=== PATIENT | male | born 1975 | race Caucasian/White ===

== ENCOUNTER → 2024-10-28 | Outpatient (CLI) | payer OTHER, BC ==
--- NOTE | 2024-10-29 07:54 | MR ---
EXAMINATION TYPE: MR shoulder LT wo con DATE OF EXAM: 10/28/2024 6:02 PM COMPARISON: None. CLINICAL INDICATION: Male, 49 years old with history of S46.012A STRAIN MUSCLE TENDON LEFT SHOULDER, Left shoulder pain x6 weeks, difficulty raising arm IV Contrast: cc (None if empty) TECHNIQUE: Multiplanar, multisequence imaging of the left shoulder is performed without contrast. FINDINGS: Rotator Cuff: Intact infraspinatus tendon. Increased signal especially in the distal supraspinatus te ndon. Increased signal heterogeneity in the subscapularis tendon. Rotator cuff muscle bulk is preserv ed. Acromioclavicular Joint: Moderate narrowing greatest posteriorly. Moderate capsular hypertrophy and m ild spurring. The underlying Fat plane is maintained. Glenohumeral Joint: [id number] size joint effusion. No significant spurring. Labrum: The labrum appears grossly intact given limitation of non-arthrogram study. Biceps Tendon: The long head of biceps is in normal location within bicipital groove. Bone marrow signal: No focal abnormal marrow signal is appreciated. Other: No additional significant abnormality is appreciated. IMPRESSION: 1. Tendinosis of the supraspinatus and subscapularis tendons. 2. [id number] AC joint arthropathy. 3. Small to moderate size glenohumeral joint effusion. [facility], , 10/29/2024 7:52 AM
== END | disposition home or self-care (01) ==
LOC: RADMRIMAIN 16:57
PROVIDERS: ATTEND Orthopaedic Surgery
DX: S46.012A Strain of muscle(s) and tendon(s) of the rotator cuff of left shoulder, initial encounter (principal); M67.814 Other specified disorders of tendon, left shoulder; M25.412 Effusion, left shoulder; M19.012 Primary osteoarthritis, left shoulder